=== PATIENT | female | born 1990 | race Caucasian/White ===

== ENCOUNTER 2017-06-15 11:24 | Emergency (ER) | payer OTHER ==
[~2017-06-15] VITALS: Ht 167.6 cm; Wt 72.1 kg
[2017-06-15 15:31] VITALS: BP 120/76
== END 2017-06-15 15:15 | disposition home or self-care (01) ==
LOC: ED 11:24
DX: R51 Headache (principal); H52.10 Myopia, unspecified eye; Z88.0 Allergy status to penicillin
CPT/HCPCS: 82962

== ENCOUNTER 2018-03-11 10:33 | Emergency (ER) | payer OTHER ==
[~2018-03-11] VITALS: Ht 167.6 cm; Wt 86.6 kg
[2018-03-11 10:43] VITALS: BP 114/71; Ht 167.6 cm; Wt 86.6 kg
== END 2018-03-11 11:08 | disposition home or self-care (01) ==
LOC: ED 10:33
DX: O26.892 Other specified pregnancy related conditions, second trimester (principal); R10.9 Unspecified abdominal pain; Z88.0 Allergy status to penicillin; Z3A.28 28 weeks gestation of pregnancy
CPT/HCPCS: J7030

== ENCOUNTER 2018-08-20 19:54 | Emergency (ER) | payer OTHER ==
[~2018-08-20] VITALS: Ht 167.6 cm; Wt 89.8 kg
[2018-08-20 20:02] VITALS: Ht 167.6 cm; Wt 89.8 kg
[2018-08-20 21:19] VITALS: BP 114/71
== END 2018-08-20 21:19 | disposition home or self-care (01) ==
LOC: ED 19:54
DX: M54.2 Cervicalgia (principal); M54.5 Low back pain; Z88.0 Allergy status to penicillin; V49.9XXA Car occupant (driver) (passenger) injured in unspecified traffic accident, initial encounter; Y93.I9 Activity, other involving external motion; Y92.488 Other paved roadways as the place of occurrence of the external cause; Y99.8 Other external cause status

== ENCOUNTER 2020-04-25 18:05 | Emergency (ER) | payer OTHER ==
[~2020-04-25] VITALS: Ht 167.6 cm; Wt 720.8 kg
[2020-04-25 18:15] VITALS: Ht 167.6 cm; Wt 720.8 kg
[2020-04-25 19:20] VITALS: BP 132/81
== END 2020-04-25 19:20 | disposition home or self-care (01) ==
LOC: ED 18:05
DX: F41.9 Anxiety disorder, unspecified (principal); Z88.0 Allergy status to penicillin

== ENCOUNTER 2020-09-22 01:02 | Emergency (ER) | payer OTHER ==
[~2020-09-22] VITALS: Ht 167.6 cm; Wt 85.5 kg
[2020-09-22 01:49] VITALS: BP 130/86
== END 2020-09-22 01:49 | disposition home or self-care (01) ==
LOC: ED 01:02
DX: K64.9 Unspecified hemorrhoids (principal); F17.210 Nicotine dependence, cigarettes, uncomplicated; Z88.0 Allergy status to penicillin

== ENCOUNTER 2021-01-15 21:13 | Emergency (ER) | payer OTHER ==
[~2021-01-15] VITALS: Ht 167.6 cm; Wt 85.7 kg
[2021-01-15 21:40] VITALS: BP 129/82; Ht 167.6 cm; Wt 85.7 kg
== END 2021-01-15 23:30 | disposition home or self-care (01) ==
LOC: ED 21:13
DX: S01.511A Laceration without foreign body of lip, initial encounter (principal); Z88.0 Allergy status to penicillin; W22.8XXA Striking against or struck by other objects, initial encounter; Y93.89 Activity, other specified; Y92.89 Other specified places as the place of occurrence of the external cause; Y99.8 Other external cause status
CPT/HCPCS: 90715

== ENCOUNTER 2021-01-20 17:10 | Emergency (ER) | payer OTHER ==
[~2021-01-20] VITALS: Ht 165.1 cm; Wt 85.7 kg
[2021-01-20 17:14] VITALS: BP 132/87; Ht 165.1 cm; Wt 85.7 kg
== END 2021-01-20 17:49 | disposition home or self-care (01) ==
LOC: ED 17:10
DX: S01.511D Laceration without foreign body of lip, subsequent encounter (principal); Z88.0 Allergy status to penicillin; X58.XXXD Exposure to other specified factors, subsequent encounter